=== PATIENT | female | born 2005 | race Caucasian/White ===

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

== ENCOUNTER 2024-03-23 16:14 | Emergency (ER) | payer MEDICAID, SELFPAY ==
[2024-03-23 16:15] VITALS: BP 126/81; PULSE 90; RESP 10; TEMP 36.6; O2SAT 100
--- NOTE | 2024-03-23 16:39 | W.ED.GENAD ---
Discharge Plan Disposition Patient Disposition: Home Condition: Stable Discharge Details Clinical Impression: Toothache Primary Care Provider: Narda Arriaga ED Provider: Paty Joyce Home Meds and New Rx's Prescriptions: New amoxicillin-pot clavulanate 875-125 mg tablet 1 tab PO BID 7 Days Qty: 14 0RF Rx Instructions: Take one tablet by mouth twice daily x 7 days Discharge Instructions Instructions: Dental Pain ED Additional Instructions: Use the hurricaine gel up to three times daily as needed for pain. Take the Antibiotic twice daily as prescribed with yogurt or a probiotic. Keep dentist appointment as previously scheduled. Take Tylenol or Ibuprofen every 4-6 hours as needed for pain. Referrals: Narda Arriaga [Primary Care Provider] - 5 days Discharge Data Discharge Date/Time-TO BE ENTERED AT DEPARTURE: 03/23/24 16:58 HPI General Mode of arrival: ambulatory. Date/Time Provider Initiated Documentation: 03/23/24 16:33. Limitations to Documentation: no limitations. Information obtained by: patient, RN notes reviewed and old records reviewed. HPI Narrative: 18 year old female presents to the ER with cc upper right molar pain x 2 weeks. Associated with right ear pain, jaw pain and mild sore throat. No other c/o has a dental appointment on 04-[address] [facility]. Related Data Home Medications ?Medication ?Instructions ?Recorded ?Confirmed amoxicillin 875 mg-potassium 1 tab PO BID dental infection 7 03/23/24 clavulanate 125 mg tablet days #14 tabs Previous Rx's ?Medication ?Instructions ?Recorded amoxicillin 875 mg-potassium 1 tab PO BID dental infection 7 03/23/24 clavulanate 125 mg tablet days #14 tabs Allergies Allergy/AdvReac Type Severity Reaction Status Date / Time No Known Allergies Allergy Verified 03/23/24 16:19 General Stated Complaint: DentalOral ALBERTO: 4 Review of Systems All systems reviewed & are unremarkable except as noted in HPI and below ENT Ears, Nose, Mouth, and Throat: Reports as per HPI and Reports mouth pain Exam Const General: cooperative, healthy appearing, comfortable and well hydrated Nutritional Appearance: average body habitus Orientation: alert, awake and oriented x3 HENMT Head: normal to inspection Ears: hearing grossly normal bilaterally General nose exam: external nose normal Face and sinus: normal facial exam Mouth: oral mucosae normal, lip normal, tongue normal, salivary ducts normal, oropharynx normal and moist mucous membranes Teeth and gingiva: dentition normal, gingiva normal and caries (Right upper) Throat: posterior oropharynx normal Course Vital Signs Vital signs: Vital Signs Temperature 36.6 C 03/23/24 16:15 Pulse 90 03/23/24 16:15 Respiratory Rate 10 L 03/23/24 16:15 Blood Pressure 126/81 03/23/24 16:15 Pulse Oximetry 100 03/23/24 16:15 Temperature 36.6 C 03/23/24 16:15 Pulse 90 03/23/24 16:15 Respiratory Rate 10 L 03/23/24 16:15 Respiratory Effort Normal 03/23/24 16:21 Blood Pressure 126/81 03/23/24 16:15 Pulse Oximetry 100 03/23/24 16:15 Oxygen Delivery Method Room Air 03/23/24 16:15 Oxygen Flow Rate 0 03/23/24 16:15 Pain Level 9 03/23/24 16:34 Comment 800mg ibu a few hours ago 03/23/24 16:34 Medical Decision Making 18 year old female presents to the ER with cc upper right molar pain x 2 weeks. Associated with right ear pain, jaw pain and mild sore throat. No other c/o has a dental appointment on 04-13 with [facility]. No area of fluctuance noted on exam, no abscess, no obvious erosion of teeth. No evidence of Ludewig's angina, patient speaking full sentences Patient given Augmentin and HurriCaine gel and instructed to keep her appointment with her dentist. This text was generated using [employer] dictation system, please disregard any oddities of phrase or misspellings. Quality:SDOH Health Related Social Needs: No Data to Display PFSH All Active Problems (Updated 03/23/24 @ 16:41 by Paty Joyce NP) Toothache (Acute) No-show for appointment (Acute) Rupture of UCL of right thumb (Acute) Depression with anxiety (Acute) Generalized hyperhidrosis (Acute) Encounter for management and injection of depo-Provera (Acute) Depression (Chronic) Family history of Rowe's disease (Chronic 02/17/17) Mother. BMI (body mass index), pediatric, 85% to less than 95% for age (Chronic 02/17/17) Medical History RAD (reactive airway disease) Family History Mother Cece's disease Father Healthy adult on routine physical examination Asthma As a child Grandparent Hodgkins lymphoma PGM Diabetes PGF - borderline Hyperlipidemia PGF Neoplasm PGM - breast Social History Smoking/Tobacco Use Status: Never Second Hand Exposure: Yes Smoking risk assessment performed?: Yes Alcohol Intake: current Alcohol Intake frequency: a few times a month Drug use: Never Adopted: No Foster care: No Housing: house Communication Needs: None Education Level: high school Details: 11th grade fall 2020 - [employer] Pets and animals: Yes ( 2 dogs,1 cat) Pets and animals: dog(s) Current gender identity: female What type of physical activity do you participate in: other 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
[2024-03-23] MEDS: Amoxicillin 875/Clav. 125 TAB PO (16:49)
[2024-03-23] MEDS: Benzocaine 20% Gel 30 GM JAR MM (16:49)
== END 2024-03-23 16:58 | disposition home or self-care (01) ==
LOC: ER 17:01
PROVIDERS: Emergency Provider Registered Nurse Emergency; PCP Nurse Practitioner Family
DX: K08.89 Other specified disorders of teeth and supporting structures (principal); H92.01 Otalgia, right ear; J02.9 Acute pharyngitis, unspecified
CPT/HCPCS: 99283

== ENCOUNTER 2024-12-07 16:12 | Outpatient (CLI) | payer MEDICAID, SELFPAY ==
[2024-12-07 16:41] LABS: HCG Quant, Pregnancy 29 mIU/mL (1-3)
== END 2024-12-07 16:13 | disposition home or self-care (01) ==
LOC: LBO 16:13
PROVIDERS: PCP Nurse Practitioner Family; Visit Provider Advanced Practice Midwife
DX: Z32.01 Encounter for pregnancy test, result positive (principal)
CPT/HCPCS: 36415; 84702

== ENCOUNTER 2024-12-09 15:59 | Outpatient (CLI) | payer MEDICAID, SELFPAY ==
[2024-12-09 16:45] LABS: HCG Quant, Pregnancy 13 mIU/mL (1-3)
== END 2024-12-09 16:00 | disposition home or self-care (01) ==
LOC: LBO 16:00
PROVIDERS: PCP Nurse Practitioner Family; Visit Provider Advanced Practice Midwife
DX: N92.6 Irregular menstruation, unspecified (principal)
CPT/HCPCS: 36415; 84702

== ENCOUNTER 2024-12-16 17:53 | Outpatient (CLI) | payer MEDICAID, SELFPAY ==
[2024-12-16 16:48] LABS: HCG Quant, Pregnancy 1 mIU/mL (1-3)
== END 2024-12-16 17:54 | disposition home or self-care (01) ==
LOC: LBO 17:54
PROVIDERS: PCP Nurse Practitioner Family; Visit Provider Advanced Practice Midwife
DX: O03.9 Complete or unspecified spontaneous abortion without complication (principal)
CPT/HCPCS: 36415; 84702

== ENCOUNTER 2025-01-16 14:20 | Outpatient (CLI) | payer MEDICAID, SELFPAY ==
[2025-01-16 11:44] LABS: HCT 42.9 % (36.0-46.0); HGB 13.8 g/dL (11.2-15.7); MCH 30.5 pg (27.0-33.0); MCHC 32.2 % (32.0-36.0); MCV 95 fL (80-95); MPV 9.3 fL (8.0-11.0); Platelet Count 294 10^3/uL (130-400); RBC 4.52 10^6/uL (3.93-5.22); RDW 12.8 % (11.7-14.6); RDW-SD 44.6 fL; WBC 5.97 10^3/uL (4.4-10.8)
[2025-01-16 12:14] LABS: Iron 141 ug/dL (50-170); Total Iron Binding Capacity 259 ug/dL (250-450); Transferrin Sat 54 % (15-50)
[2025-01-16 12:26] LABS: Ferritin 86 ng/mL (8-252); TSH (W/Ref FT4) 1.49 uIU/mL (0.36-3.74)
[2025-01-16 12:27] LABS: HCG Quant, Pregnancy < 1 mIU/mL (1-3)
[2025-01-27 15:02] LABS: Testosterone, Bioavailable 1.9 ng/dL; Testosterone, Free 0.47 ng/dL (<0.13-1.08)
== END 2025-01-16 14:21 | disposition home or self-care (01) ==
LOC: LBO 14:21
PROVIDERS: PCP Nurse Practitioner Family; Visit Provider Obstetrics & Gynecology
DX: O26.891 Other specified pregnancy related conditions, first trimester (principal); Z67.91 Unspecified blood type, Rh negative; N92.6 Irregular menstruation, unspecified; N96 Recurrent pregnancy loss; N93.9 Abnormal uterine and vaginal bleeding, unspecified
CPT/HCPCS: 36415; 84402; 84403; 84410; 85027; 86850; 86900; 86901; 82728; 83540; 83550; 84443; 84702

== ENCOUNTER 2025-03-14 16:01 | Outpatient (CLI) | payer MEDICAID, SELFPAY ==
[2025-03-14 15:16] LABS: HCG Quant, Pregnancy 8404 mIU/mL (1-3)
== END 2025-03-14 16:02 | disposition home or self-care (01) ==
LOC: LBO 16:01
PROVIDERS: PCP Nurse Practitioner Family; Visit Provider Obstetrics & Gynecology
DX: Z34.91 Encounter for supervision of normal pregnancy, unspecified, first trimester (principal)
CPT/HCPCS: 36415; 84702

== ENCOUNTER 2025-03-24 08:50 | Emergency (ER) | payer MEDICAID, SELFPAY ==
[2025-03-24 08:59] VITALS: BP 130/73; PULSE 90; RESP 16; O2SAT 98
--- NOTE | 2025-03-24 09:07 | W.ED.GENAD ---
Discharge Plan Disposition Patient Disposition: Home Condition: Good Discharge Details Clinical Impression: Miscarriage Primary Care Provider: Narda Arriaga ED Provider: Carlene Knight Home Meds and New Rx's Prescriptions: Continued Classic 28 mg iron- 800 mcg tablet 1 tab PO DAILY Discharge Instructions Instructions: Loss (Miscarriage) ED Additional Instructions: As we discussed, your labs are concerning for a dropping HCG which indicates that you are likely suffering a miscarriage. Again, this is not something that you have done wrong but is likely part of the developmental portion of the fetus and your body recognizes that a miscarriage is appropriate. Please continue with the excellent care you are taking all of your self including staying hydrated, taking your prenatals. This will help you stay healthy for any future pregnancies you may have. If you develop increase in your bleeding, abdominal pain, fevers or other new/worsening symptoms please seek care emergently once again. Otherwise, the women's health clinic will call you to schedule follow-up appointment for the beginning of the week later today. Referrals: Winsome Schofield DO [OSTEOPATHIC DOCTOR, Obstetrics] HPI General Date/Time Provider Initiated Documentation: 03/24/25 09:07. Limitations to Documentation: no limitations. Information obtained by: patient, family (friend), RN notes reviewed and old records reviewed. History of Present Illness 19 year old F presents to the emergency department with the chief complaint of vaginal bleeding, described as mild, Patient started experiencing this hour(s) and it has been constant. No relieving factors improve symptom(s), No exacerbating factors reported . Patient notes no other symptoms.. 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: 3 Review of Systems Constitutional Constitutional: Reports as per HPI, Denies fever(s) and Denies headache(s) ENT Ears, Nose, Mouth, and Throat: Denies headache(s) Cardiovascular Cardiovascular: Reports as per HPI, Denies chest pain and Denies dyspnea Respiratory Respiratory: Reports as per HPI, Denies cough and Denies dyspnea Gastrointestinal Gastrointestinal: Reports as per HPI Musculoskeletal Musculoskeletal: Reports as per HPI and Denies back pain Integumentary/Breasts Skin/Breast: Reports as per HPI and Denies rash Neurologic Neurologic: Reports as per HPI and Denies headache(s) Exam Const General: cooperative, healthy appearing, comfortable, no acute distress, well developed and anxious Nutritional Appearance: average body habitus and well nourished Orientation: alert and awake HENMT Head: normal to inspection Mouth: moist mucous membranes Resp Effort & Inspection: normal respiratory effort, able to speak in complete sentences and no respiratory distress Auscultation: clear to auscultation bilaterally, no rales, no rhonchi and no wheezes Cardio Rate: regular rate Rhythm: regular rhythm Heart Sounds: S1 normal and S2 normal General: other (small amount of blood on menstrual pad) Skin General skin exam: no rashes or lesions noted Trauma: no lacerations or abrasions Neuro General: patient alert and patient awake Cognition: normal cognition Speech: speech normal Gait: normal gait Course Vital Signs Vital signs: Vital Signs Pulse 90 03/24/25 08:59 Respiratory Rate 16 03/24/25 08:59 Blood Pressure 130/73 03/24/25 08:59 Pulse Oximetry 98 03/24/25 08:59 Temperature Source Oral 03/24/25 08:59 Pulse 90 03/24/25 08:59 Respiratory Rate 16 03/24/25 08:59 Blood Pressure 130/73 03/24/25 08:59 Blood Pressure Position Sitting 03/24/25 08:59 Pulse Oximetry 98 03/24/25 08:59 Oxygen Delivery Method Room Air 03/24/25 08:59 Oxygen Flow Rate 0 03/24/25 08:59 Pain Level 0 03/24/25 08:59 Medical Decision Making Patient is a pleasant 19-year-old female past medical history of depression, family history of Cece's, anxiety, reactive airway disease, presenting today with chief complaint of vaginal bleeding. She reports that she is currently , patient initially estimated about 3 months labs from last week as well as her appointment with obstetrics, more likely to be around 6 weeks at this time. Patient reports that she had been doing well, initially had a small amount of vaginal bleeding but that this subsided quickly. She had increased vaginal bleeding that began this morning. She denies any cramping or abdominal pain. No nausea or vomiting although she does state that she had some nausea leading up to today without any actual emesis. She feels safe and supported in her relationship. This was a wanted and, if the patient is miscarrying, possibly her third miscarriage since the spring. On exam, patient appears nontoxic. She has notably no acute distress. Hemodynamically stable. Abdominal exam is nontender. No masses. No guarding or peritoneal findings. No unilateral pain to suggest ectopic. Although intravaginal exam was completed, I did evaluate the amount of bleeding by looking at her menstrual pad which she applied over an hour ago, patient has minimal blood on the menstrual pad at this point. No clots and no significant bleeding is appreciated. Patient reports that she had panty liner on prior to applying this pad but has not had any other changes, has not been using any tampons. Return to Dr. Schofield regarding utility of ultrasound. Given the early stage of the vaginal bleeding she is experiencing, concerned that may not be able to visualize a gestational sac as of yet. She advised that it is fairly early and that the patient is actually scheduled for a ultrasound April 11 which is more appropriate, she does not feel that we need to move forward with transvaginal ultrasound today. Will obtain labs and trend the quantitative hCG, she did have this completed last week will also obtain type and screen to assess for need of any RhoGAM. Patient H&H is stable. Patient's O+ blood type. She has a downtrending hCG from [id number]. I discussed this with the patient. Advised that it does appear that she is having a miscarriage and we discussed the underlying physiology that can lead to these try to offer some reassurance. I did encourage that she continue with her vitamins. I did again reach out to Dr. Schofield who advised that she could see her early next week or sooner if patient felt this was needed but patient would prefer to follow-up next week. Office will call to schedule follow-up appointment. Strict return precautions were discussed. Emotional support was offered, patient does have a friend with her that is quite supportive as well as supportive significant other. Patient feels safe for discharge. All of her questions and concerns were addressed and she is in agreement this plan. Dictation completed using [employer] dictation software. Please excuse any errors or electro mechanical assembler anomalies that may remain. COUNTS INCLUDE 234 BEDS AT THE [facility] All Active Problems (Updated 03/24/25 @ 11:26 by NICO Samano) Miscarriage (Acute) Amenorrhea (Acute) Complete miscarriage (Acute) Medical History BMI (body mass index), pediatric, 85% to less than 95% for age (02/17/17) Depression Family history of Orem's disease (02/17/17) Mother. Generalized hyperhidrosis Rupture of UCL of right thumb Depression with anxiety No-show for appointment RAD (reactive airway disease) Family History Mother Cece's disease Father Healthy adult on routine physical examination Asthma As a child Grandparent Hodgkins lymphoma PGM Diabetes PGF - borderline Hyperlipidemia PGF Neoplasm PGM - breast Social History Smoking/Tobacco Use Status: Former Tobacco Use Tobacco: How many years used: 2 Second Hand Exposure: Yes Smoking risk assessment performed?: Yes Alcohol Intake: current Alcohol Intake frequency: a few times a month Drug use: Never Substance use type: does not use Adopted: No Foster care: No Housing: house Communication Needs: None Education Level: high school Details: 11th grade fall 2020 - [employer] Pets and animals: Yes ( 2 dogs,1 cat) Pets and animals: dog(s) Current gender identity: female What type of physical activity do you participate in: other 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
[2025-03-24 09:59] VITALS: BP 102/65; PULSE 81; O2SAT 100
[2025-03-24 10:00] VITALS: PULSE 71; O2SAT 98
[2025-03-24 10:02] VITALS: BP 103/70; PULSE 75; O2SAT 100
[2025-03-24 10:05] LABS: Abs Immature Grans 0.02 10^3/uL (0.0-0.06); HCT 43.6 % (36.0-46.0); HGB 13.9 g/dL (11.2-15.7); Immature Grans % 0.2 %; MCH 30.0 pg (27.0-33.0); MCHC 31.9 % (32.0-36.0); MCV 94 fL (80-95); MPV 9.1 fL (8.0-11.0); Platelet Count 303 10^3/uL (130-400); RBC 4.64 10^6/uL (3.93-5.22); RDW 12.4 % (11.7-14.6); RDW-SD 42.8 fL; WBC 8.76 10^3/uL (4.4-10.8)
[2025-03-24 10:10] VITALS: PULSE 76; O2SAT 99
[2025-03-24 10:46] LABS: ALT 55 U/L (14-59); AST 23 U/L (15-37); Albumin 4.3 g/dL (3.4-5.0); Alkaline Phosphatase 86 U/L (46-116); Anion Gap 8.5 mmol/L (3-11); BUN 8 mg/dL (7-18); Bilirubin, Total 0.4 mg/dL (0.2-1.0); CO2 28.5 mmol/L (21.0-32.0); Calcium 9.3 mg/dL (8.5-10.1); Chloride 105 mmol/L (98-107); Estimated GFR 131.70 (mL/min/1.73m2); Glucose 79 mg/dL (74-106); Potassium 4.1 mmol/L (3.5-5.1); Sodium 142 mmol/L (136-145); Total Protein 7.7 g/dL (6.4-8.2)
[2025-03-24 10:50] LABS: HCG Quant, Pregnancy 1258 mIU/mL (1-3)
[2025-03-24 11:32] VITALS: BP 139/91; PULSE 107; RESP 16; O2SAT 99
== END 2025-03-24 11:33 | disposition home or self-care (01) ==
PROVIDERS: Emergency Provider Physician Assistant; PCP Nurse Practitioner Family
DX: O03.9 Complete or unspecified spontaneous abortion without complication (principal)
CPT/HCPCS: 36415; 80053; 86850; 86900; 86901; 99283; 84702; 85025

== ENCOUNTER 2025-03-26 03:21 | Emergency (ER) | payer MEDICAID, SELFPAY ==
--- NOTE | 2025-03-26 00:42 | POCSPONT_PTH ---
PATIENT: Emily Mcmahan V LOC: [facility] U#:[id number] AGE/SX: 19/F ROOM: RE03/26/[address]: Cristina Arevalo : 2005 BED: DIS: 03/26/2025 SPEC #: [id number] RECD: 03/27/25 16:32 STATUS: MARICRUZ RE #: [id number] ROSALIND: 03/26/25 00:[address]: Cristina Arevalo DEPT: Surgical Specimen RECD BY: Tricia Smith ENTERED: 03/27/25 16:32 SP TYPE: LORRAINE CARDONA DR: Narda Arriaga Tissues: 1 - ,SPONTANEOUS Procedures: GROSS AND MICRO LEVEL 4 Comments: [id number]
[2025-03-26 03:24] VITALS: BP 127/78; PULSE 75; RESP 18; TEMP 35.9
[2025-03-26] MEDS: Ketorolac 15 MG/ML VIAL IVP (03:37)
[2025-03-26 03:42] VITALS: BP 127/78; PULSE 75; RESP 18; TEMP 35.9; O2SAT 98
--- NOTE | 2025-03-26 03:47 | W.ED.GENAD ---
Discharge Plan Disposition Patient Disposition: Home Condition: Good Discharge Details Clinical Impression: Miscarriage Primary Care Provider: Narda Arriaga ED Provider: Cristina Arevalo Home Meds and New Rx's Prescriptions: No Action Classic 28 mg iron- 800 mcg tablet 1 tab PO DAILY Discharge Instructions Instructions: Loss (Miscarriage) ED Additional Instructions: Call your [facility] first thing Thursday to schedule a time to be seen that day. They are expecting your call. You can take tylenol and ibuprofen over the counter for pain; follow the directions on the bottle. Return to the emergency department for new or worsening symptoms including fever, new/different/worse pain, bleeding that saturates through a pad in less than an hour, passing large clots, feeling lightheaded, or if you have any other concerns. HPI General Mode of arrival: ambulatory. Date/Time Provider Initiated Documentation: 03/26/25 03:23. Limitations to Documentation: no limitations. Information obtained by: patient. HPI Narrative: 19yo F approximately two months currently miscarrying, presenting for abdominal pain. Seen in this ED on 03/24 for vaginal bleeding, diagnosed with miscarriage. Has had continued bleeding, not soaking through her pad, and passing small stringly clots. Had not been having any abdominal pain until tonight, now having crampy lower abdominal pain that woke her from sleep. No increase in bleeding with this. Has not taken anything at home for pain. Otherwise in her usual state of health with no fevers, chills, nausea, vomiting, lightheadedness, or other concerns. Related Data Home Medications ?Medication ?Instructions ?Recorded ?Confirmed vits no.126-ferrous fum 1 tab PO DAILY 03/14/25 03/26/25 28 mg iron-folic acid 800 mcg tablet (Classic ) Allergies Allergy/AdvReac Type Severity Reaction Status Date / Time No Known Allergies Allergy Verified 03/26/25 03:29 General Stated Complaint: Abd Prob ALBERTO: 3 Review of Systems Narrative: see HPI Course Vital Signs Vital signs: Vital Signs Temperature 35.9 C L 03/26/25 03:24 Pulse 75 03/26/25 03:24 Respiratory Rate 18 03/26/25 03:24 Blood Pressure 127/78 03/26/25 03:24 Temperature 35.9 C L 03/26/25 03:42 Pulse 75 03/26/25 03:42 Respiratory Rate 18 03/26/25 03:42 Blood Pressure 127/78 03/26/25 03:42 Blood Pressure Position Supine 03/26/25 03:42 Pulse Oximetry 98 03/26/25 03:42 Oxygen Delivery Method Room Air 03/26/25 03:42 Pain Level 10 03/26/25 03:42 Medical Decision Making 19yo F approximately two months currently miscarrying, presenting for abdominal pain. Seen in this ED on 03/24 for vaginal bleeding, diagnosed with miscarriage based on hCG levels (decreased to <1500 on 03/24 down from 8404 on 03/14). RH+ . Has not had any US; OB was consulted from ED on 03/24 and did not advise US at that time. Since that visit she has continued moderate bleeding. Presents tonight for severe cramp lower abdominal pain that woke her from sleep. No increase in bleeding with this. Vital signs reassuring on arrival, abdomen nontender. -Tylenol and toradol for pain -CBC reassuring with Hg of 13.0 -POCUS negative for pelvic free fluid On reassessment patient reports pain is much improved, began to improve after torald and then she passed a large clot with a small gush of blood. Moderate amount of blood on pad which had just been changed; what appears to be tissue present as well (no clot). Overall suggestive of actively miscarrying, unlikely ectopic. Discussed with Dr. Schofield audit specialist who requested we send sample down to pathology (this was done), states no indication for pelvic US. If having heavy bleeding would do misoprosotol however given moderate bleeding and reassuring hemoglobin okay to hold off as will likely increase pt's cramping. OB will followup with patient, would like her to call the office on Thursday with plan to be seen that day. Patient observed in the ED for an hour after the passage of tissue, bleeding light to moderate during that time. Vital signs remain reassuring and her abdomen remains nontender. Discharged home; discharge instructions and reutrn precuations were reviewed with patient who verbalized understanding. All questions were answered and she is in full agreement with the plan. Lab Data Lab results reviewed: Yes I reviewed the patient's lab results. PFSH All Active Problems (Updated 03/26/25 @ 04:54 by Cristina Arevalo MD) Miscarriage (Acute) Amenorrhea (Acute) Complete miscarriage (Acute) Medical History BMI (body mass index), pediatric, 85% to less than 95% for age (02/17/17) Depression Family history of Glendale's disease (02/17/17) Mother. Generalized hyperhidrosis Rupture of UCL of right thumb Depression with anxiety No-show for appointment RAD (reactive airway disease) Family History Mother Glendale's disease Father Healthy adult on routine physical examination Asthma As a child Grandparent Hodgkins lymphoma PGM Diabetes PGF - borderline Hyperlipidemia PGF Neoplasm PGM - breast Social History Smoking/Tobacco Use Status: Former Tobacco Use Tobacco: How many years used: 2 Second Hand Exposure: Yes Smoking risk assessment performed?: Yes Alcohol Intake: current Alcohol Intake frequency: a few times a month Drug use: Never Substance use type: does not use Adopted: No Foster care: No Housing: house Communication Needs: None Education Level: high school Details: 11th grade fall 2020 - [employer] Pets and animals: Yes ( 2 dogs,1 cat) Pets and animals: dog(s) Current gender identity: female What type of physical activity do you participate in: other 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
[2025-03-26] MEDS: ACETAMINOPHEN 1,000 MG/100 ML BAG 400 MG IVPB (04:03)
[2025-03-26 04:10] LABS: Abs Immature Grans 0.11 10^3/uL (0.0-0.06); HCT 39.8 % (36.0-46.0); HGB 13.0 g/dL (11.2-15.7); Immature Grans % 0.7 %; MCH 30.4 pg (27.0-33.0); MCHC 32.7 % (32.0-36.0); MCV 93 fL (80-95); MPV 9.6 fL (8.0-11.0); Platelet Count 298 10^3/uL (130-400); RBC 4.27 10^6/uL (3.93-5.22); RDW 12.3 % (11.7-14.6); RDW-SD 42.5 fL; WBC 15.81 10^3/uL (4.4-10.8)
[2025-03-26 05:08] VITALS: BP 113/62; PULSE 60; RESP 16; O2SAT 100
--- NOTE | 2025-03-27 12:09 | NUR.NOTE ---
Nursing Note: Received call from lab verifying the source of the sample they had received yesterday from the ED. Verified that this was a sample that was passed through the vagina and LIVEST[employer] INSPECT[employer] Dr. Schofield requested pathology on the sample.
== END 2025-03-26 05:08 | disposition home or self-care (01) ==
PROVIDERS: Emergency Provider Student in an Organized Health Care Education/Training Program; PCP Nurse Practitioner Family
DX: O03.9 Complete or unspecified spontaneous abortion without complication (principal); Z87.891 Personal history of nicotine dependence
CPT/HCPCS: 76857; 88305; 96365; 96375; 99283; 85025; J0131; J1885